=== PATIENT | female | born 1980 | race Caucasian/White ===

== ENCOUNTER → 2019-08-27 | Outpatient (CLI) | payer BC | LOC: RAD 11:39 | DX: R06.00 Dyspnea, unspecified (principal); M79.89 Other specified soft tissue disorders ==

== ENCOUNTER → 2021-06-22 | Outpatient (CLI) | payer BC | LOC: ULTRA 13:55 | PROVIDERS: ATTEND Internal Medicine | DX: D68.51 Activated protein C resistance (principal); Z86.718 Personal history of other venous thrombosis and embolism ==